=== PATIENT | male | born 1985 | race Caucasian/White ===

== ENCOUNTER 2025-01-14 07:55 | Emergency (ER) | payer OTHER ==
[~2025-01-14] VITALS: Ht 177.8 cm; Wt 84.0 kg
[2025-01-14 07:57] VITALS: O2SAT 99
[2025-01-14 09:02] LABS: CHLORIDE 111 mEq/L (98-107); POTASSIUM 4.9 mEq/L (3.5-5.1); SODIUM 133 mEq/L (136-145)
[2025-01-14 09:03] LABS: CALCIUM 7.3 mg/dL (8.7-10.4); CARBON DIOXIDE 11 mEq/L (21-32); HEMOGLOBIN. 10.6 g/dL (14.0-18.0); MEAN CORPUSCULAR HEMOGLOBIN 29.4 pg (28.0-32.0); MEAN CORPUSCULAR HGB CONC 29.4 g/dL (31.0-37.0); MEAN CORPUSCULAR VOLUME 99.9 fL (80.0-94.0); MEAN PLATELET VOLUME 8.2 fl (7.4-10.4); PLATELET 245 x1000/uL (130-400); RED BLOOD CELL COUNT 3.61 mill/uL (4.7-6.1); RED CELL DISTRIBUTION WIDTH 19.3 % (11.6-14.6); WHITE BLOOD COUNT 6.4 x1000/uL (4.5-11.0)
[2025-01-14 09:08] LABS: GLUCOSE 135 mg/dL (70-105); UREA NITROGEN BLOOD 36 mg/dL (9-23)
[2025-01-14 09:15] LABS: DIFFERENTIAL COMMENT 1
[2025-01-14 09:18] LABS: CREATININE 8.6 mg/dL (0.6-1.3)
[2025-01-14 09:34] LABS: PROTHROMBIN TIME 10.4 sec (9.6-11.0)
[2025-01-14 09:50] LABS: TROPONIN I HIGH SENSITIVITY 8 ng/L (3.0-53)
[2025-01-14 12:20] LABS: ANISOCYTOSIS 1+; PLATELET ESTIMATE NORMAL
[2025-01-14 12:57] VITALS: BP 139/82; PULSE 67; RESP 10; TEMP 36.9; O2SAT 99
[2025-01-14] MEDS: DEXTROSE 50% WATER 50ML SYRINGE IV ONE (13:00)
== END 2025-01-14 13:26 | disposition short-term general hospital (02) ==
LOC: ER 07:55 → EDBEDREQ 10:18 → EDBEDREQTM 10:18 → CANBEDREQ 10:49 → ER 13:26
DX: E11.649 Type 2 diabetes mellitus with hypoglycemia without coma (principal); E87.20 Acidosis, unspecified; I12.0 Hypertensive chronic kidney disease with stage 5 chronic kidney disease or end stage renal disease; E87.8 Other disorders of electrolyte and fluid balance, not elsewhere classified; R00.1 Bradycardia, unspecified; E11.22 Type 2 diabetes mellitus with diabetic chronic kidney disease; N18.5 Chronic kidney disease, stage 5; Z87.891 Personal history of nicotine dependence; Z98.890 Other specified postprocedural states; Z88.6 Allergy status to analgesic agent
CPT/HCPCS: 36415; 71045; 80048; 82962; 83735; 84100; 84484; 85025; 93005; 96374; 99285